=== PATIENT | male | born 1995 | race Hispanic/Latino ===

== ENCOUNTER 2019-03-29 13:01 | Observation (INO) | payer OTHER, SELFPAY ==
[2019-03-29] MEDS ORDERED: Ondansetron PF 4 MG/2 ML Vial ONE (13:27)
[2019-03-29 14:07] LABS: #Basophils 0.1 thou/uL (0.0-0.2); #Eosinphils 0.1 thou/uL (0.0-0.7); #Lymphocytes 1.7 thou/uL (1.20-3.40); #Monocytes 1.1 thou/uL (0.11-0.59); %Basophils 0.6 % (0.0-1.0); %Eosinophils 0.6 % (0.0-10.0); %Lymphocytes 8.9 % (21.0-51.0); %Monocytes 5.9 % (0.0-10.0); %Neutrophils 84.1 % (42.0-75.0); Mean Corpuscular HGB CONC 36.2 g/dL (32.0-36.0); Mean Corpuscular Hemoglobin 33.4 pg (27.0-31.0); Mean Corpuscular Volume 92.5 fL (78.0-98.0); Mean Platelet Volume 9.1 fL (7.4-10.4); Platelet Count 274 thou/uL (130-400); RBC Distribution Width 10.9 % (11.5-14.5); Red Blood Cell (RBC) Count 5.38 mill/uL (4.70-6.10)
[2019-03-29 14:33] LABS: ALT (SGPT) 17 U/L (8-55); AST (SGOT) 21 U/L (5-34); Albumin 5.9 g/dL (3.5-5.0); Alkaline Phosphatase 98 U/L (40-150); Anion Gap 24 mmol/L (10-20); BUN (Urea Nitrogen) 26 mg/dL (8.9-20.6); Bilirubin, Total 2.3 mg/dL (0.2-1.2); CK (CPK) 183 U/L (30-200); Calc. Creatinine Clearance 0 mL/min (70-130); Calcium 11.3 mg/dL (7.8-10.44); Carbon Dioxide 20 mmol/L (22-29); Chloride 98 mmol/L (98-107); Estimated GFR-MDRD 42; Globulin 3.4 g/dL (2.4-3.5); Glucose 164 mg/dL (70-105); Potassium 3.1 mmol/L (3.5-5.1); Protein, Total 9.3 g/dL (6.0-8.3); Sodium 139 mmol/L (136-145)
[2019-03-29 15:10] LABS: Bilirubin 1+ (Negative); Blood, Urine 1+ (Negative); Clarity Extra Turbid (Clear); Glucose, Urine (Dipstick) 30 mg/dL (Negative); Leukocyte 500 Leu/uL (Negative); Nitrite Negative (Negative); Protein, Urine (Dipstick) 100 mg/dL (Neg-Trace); Transitional Epithelial 0-3 HPF (None Seen); Urobilinogen 3 mg/dL (Less than 2)
[2019-03-29 15:18] LABS: Bacteria/HPF 1+ HPF (None Seen); WBC/HPF 21-50 HPF (0-3)
[2019-03-29 15:19] LABS: Calcium Oxalate Crystals 1+ HPF (None Seen); Mucous/LPF 1+ LPF (<2+)
[2019-03-29] MEDS ORDERED: Ondansetron PF 4 MG/2 ML Vial IVP PRN (16:07)
[2019-03-29] MEDS ORDERED: Acetaminophen 325 MG TAB PO PRN (16:07)
[2019-03-29] MEDS ORDERED: Ondansetron ODT 4 MG TAB PO PRN (16:07)
[2019-03-29 16:59] VITALS: BMI 26.1
--- NOTE | 2019-03-29 17:24 | HP ---
PRIMARY CARE PHYSICIAN: None. CHIEF COMPLAINT: Nausea, vomiting, and muscle cramping. HISTORY OF PRESENT ILLNESS: Mr. Tejada is a 23-year-old male with no past medical history, presented to the ED earlier today after he experienced nausea, vomiting, and muscle cramping over the last two days. 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 He states that after work last night, he had went home and felt quite tired and "worn out." He states that he had felt nauseous; however, no vomiting last night; however, was at work earlier this morning and when he was up on the roof, he had began to vomit more than 10 times and he had cramping all over his body, but mainly in his lower legs. When he arrived, it was found that he was in acute kidney injury with a creatinine of 2.02 and a BUN of 26 with an estimated GFR of 42. His CK was normal at 183. He was given Zofran for his nausea and he was also given 2 L of normal saline, which he states had improved with his symptoms including his cramping and currently, denies any fever, chills, headache, blurred vision, dizziness, chest pain, palpitation, shortness of breath, abdominal pain, nausea, or vomiting. REVIEW OF SYSTEMS: All other systems reviewed and found to be negative unless mentioned in the HPI. PAST MEDICAL HISTORY: None. PAST SURGICAL HISTORY: None. PAST PSYCHIATRIC HISTORY: None. SOCIAL HISTORY: The patient reports drinking socially. Denies any tobacco use; however, does state that he occasionally smokes marijuana. However, none today or yesterday. KNOWN ALLERGIES: No known drug allergies. CURRENT HOME MEDICATIONS: None. PHYSICAL EXAMINATION: VITAL SIGNS: BP 103/58, pulse 78, respirations 25, temperature 98.1, and O2 saturation 100% on room air. GENERAL: The patient is awake, alert, and oriented x3. He is currently lying comfortably in bed and in no acute distress. His girlfriend is at bedside. HEENT: Atraumatic and normocephalic. Pupils are round and reactive to light. Extraocular muscles intact. Moist mucous membranes noted. NECK: Soft and supple. Trachea midline. CARDIOVASCULAR: Positive S1 and S2. Regular rate and rhythm. No murmur auscultated. RESPIRATORY: Clear to auscultation bilaterally. No wheezes, rales, or rhonchi. ABDOMEN: Soft and nontender. Bowel sounds present. MUSCULOSKELETAL: Strength 5+ bilaterally upper and lower extremities. Moves all extremities equal. No edema noted. NEUROLOGIC: Cranial nerves 2 through 12 grossly intact. No focal deficits noted. Speech intact and normal. Gait not assessed. SKIN: Warm, dry, and intact. No rashes. No ulceration noted. PSYCHIATRIC: Good mood and affect. LABORATORY DATA: WBC 19.0, RBC 5.38, hemoglobin 18.0, and platelet 274. Sodium 139, potassium 3.1, anion gap 24, BUN 26, creatinine 2.02, estimated GFR 42, glucose 164, AST 21, and ALT 17. CK 183. DIAGNOSTIC IMAGING: None. ASSESSMENT AND PLAN: 1. Dehydration. The patient's symptoms are better after IV fluid hydration. He will be started on maintenance fluids at 125 an hour of normal saline and we will recheck BMP. 2. Acute kidney injury, likely secondary to dehydration. 3. Hypokalemia. We will recheck BMP and order a magnesium and we will replace as needed. 4. Deep venous thrombosis and gastrointestinal prophylaxis. 5. Code status. Full code. 6. Disposition. The patient will be started on maintenance fluids. He will be monitored overnight. A BMP will be rechecked and he will likely be discharged tomorrow once his renal function normalizes. Job ID: [id number]
[2019-03-29 17:27] LABS: Anion Gap 12 mmol/L (10-20); BUN (Urea Nitrogen) 21 mg/dL (8.9-20.6); Calc. Creatinine Clearance 99 mL/min (70-130); Calcium 9.6 mg/dL (7.8-10.44); Carbon Dioxide 25 mmol/L (22-29); Chloride 105 mmol/L (98-107); Estimated GFR-MDRD 74; Glucose 90 mg/dL (70-105); Potassium 3.9 mmol/L (3.5-5.1); Sodium 138 mmol/L (136-145)
[2019-03-29] MEDS: Sodium Chloride 0.9% 1,000 ML IV SCH (17:49)
[2019-03-30] MEDS: Sodium Chloride 0.9% 1,000 ML IV SCH ×2 (01:57→10:19)
[2019-03-30 05:24] LABS: #Basophils 0.1 thou/uL (0.0-0.2); #Eosinphils 0.1 thou/uL (0.0-0.7); #Lymphocytes 2.3 thou/uL (1.20-3.40); #Monocytes 0.8 thou/uL (0.11-0.59); #Neutrophils 3.2 thou/uL (1.40-6.50); %Basophils 0.9 % (0.0-1.0); %Lymphocytes 36.1 % (21.0-51.0); %Monocytes 11.8 % (0.0-10.0); %Neutrophils 49.2 % (42.0-75.0); Hemoglobin 13.7 g/dL (14.0-18.0); Mean Corpuscular HGB CONC 35.5 g/dL (32.0-36.0); Mean Corpuscular Hemoglobin 33.3 pg (27.0-31.0); Mean Corpuscular Volume 93.8 fL (78.0-98.0); Mean Platelet Volume 8.5 fL (7.4-10.4); Platelet Count 189 thou/uL (130-400); RBC Distribution Width 10.9 % (11.5-14.5); Red Blood Cell (RBC) Count 4.12 mill/uL (4.70-6.10); White Blood Cell (WBC) Count 6.5 thou/uL (4.8-10.8)
[2019-03-30 05:25] LABS: Anion Gap 11 mmol/L (10-20); BUN (Urea Nitrogen) 13 mg/dL (8.9-20.6); Calc. Creatinine Clearance 146 mL/min (70-130); Calcium 8.8 mg/dL (7.8-10.44); Carbon Dioxide 25 mmol/L (22-29); Chloride 105 mmol/L (98-107); Estimated GFR-MDRD Greater than 90; Glucose 94 mg/dL (70-105); Potassium 3.9 mmol/L (3.5-5.1); Sodium 137 mmol/L (136-145)
[2019-03-30 08:23] VITALS: BP 107/51; TEMP 98.1
--- NOTE | 2019-03-31 02:03 | DIS ---
DATE OF ADMISSION: 03/29/2019 DATE OF DISCHARGE: 03/30/2019 DISCHARGE DIAGNOSES: 1. Heat prostration. 2. Dehydration. 3. Acute kidney injury. 4. Hypercalcemia. 5. Hypokalemia. 6. Leukocytosis. HISTORY OF PRESENT ILLNESS: This patient is a 23-year-old male, who had been out working in the heat the day prior. He felt very poor, felt like he was weak and shaky. He attempted to try to take a nap, but did not seem to be improving much. He subsequently presented back to work on Saturday, where he started feeling worse by midday, had some vomiting and whole-body cramping. He says he got down off the roof. When he got to the ground off a ladder, he basically collapsed. His boss picked him up and was driving him back home and he subsequently brought himself to the emergency department. He was noted to have a creatinine of 2.02, potassium 3.1. White count of 19.0, calcium 11.3. HOSPITAL COURSE: The patient was placed on observation. He was aggressively hydrated and lab subsequently rechecked with repletion of potassium. Overnight, the patient felt extremely better. His potassium remained at 3.9. His creatinine came down to 0.83 and his GFR was back to 90. His calcium was down to 8.8 and his white count was down to 6.5. He felt substantially better, was able to eat and ambulate without difficulty. PHYSICAL EXAMINATION: VITAL SIGNS: Temperature is 98.1, pulse 74, respirations 14, O2 saturation 98% on room air, BP 107/51. GENERAL: He is awake, alert, oriented, pleasant, cooperative. HEART: Regular rate and rhythm without murmurs, gallops, or rubs. LUNGS: Clear bilaterally. ABDOMEN: Benign. EXTREMITIES: No cyanosis, clubbing, or edema. DISPOSITION: The patient is discharged to home in stable condition. ACTIVITY: As tolerated, although he is to rest today and tomorrow. DIET: Regular. He is encouraged to continue to push fluids. DISCHARGE MEDICATIONS: He will be on no home medications. FOLLOWUP: He is encouraged to establish with a PCP provider to follow up and he can return to the hospital anytime he feels the need. Job ID: [id number]
== END 2019-03-30 11:09 | disposition home or self-care (01) ==
LOC: ERS 13:01 → 2SW 15:22
PROVIDERS: ADMIT Internal Medicine; ATTEND Internal Medicine
DX: T67.5XXA Heat exhaustion, unspecified, initial encounter (principal); E86.0 Dehydration; N17.9 Acute kidney failure, unspecified; E83.52 Hypercalcemia; E87.6 Hypokalemia; D72.829 Elevated white blood cell count, unspecified; F17.200 Nicotine dependence, unspecified, uncomplicated
CPT/HCPCS: 36415; 80048; 80053; 81003; 81015; 82550; 83735; 85025; 94760; 96361; 96374; G0378; J2405